=== PATIENT | female | born 1980 | race Caucasian/White ===

== ENCOUNTER → 2018-09-25 | Outpatient (CLI) | payer OTHER ==
[~2018-09-25] MED LIST: EFFEXOR XR150 MG PO; NAPROSYN500 MG PO; PENICILLIN VK500 MG PO; Peridex 473 ML473 ML PO; TRAZODONE50 MG PO
== END | disposition home or self-care (01) ==
LOC: US 16:54
DX: I10 Essential (primary) hypertension (principal); N17.9 Acute kidney failure, unspecified

== ENCOUNTER 2021-06-21 14:14 | Emergency (ER) | payer OTHER | END 2021-06-21 17:00 | disposition home or self-care (01) | LOC: ED 14:14 | DX: S06.0X1A Concussion with loss of consciousness of 30 minutes or less, initial encounter (principal); M25.551 Pain in right hip; M25.511 Pain in right shoulder; Z91.041 Radiographic dye allergy status; Z79.899 Other long term (current) drug therapy; Z98.51 Tubal ligation status; Z98.890 Other specified postprocedural states; W01.198A Fall on same level from slipping, tripping and stumbling with subsequent striking against other object, initial encounter; Y93.89 Activity, other specified; Y92.89 Other specified places as the place of occurrence of the external cause; Y99.8 Other external cause status ==

== ENCOUNTER 2023-03-06 18:48 | Emergency (ER) | payer OTHER ==
[~2023-03-06] VITALS: Ht 147.3 cm; Wt 49.0 kg
[2023-03-06] MEDS ORDERED: PERCOCET 5-3251 EACH PO (20:07)
== END 2023-03-06 20:18 | disposition home or self-care (01) ==
LOC: ED 18:48
DX: M79.601 Pain in right arm (principal); D36.10 Benign neoplasm of peripheral nerves and autonomic nervous system, unspecified; Z90.89 Acquired absence of other organs; Z98.890 Other specified postprocedural states; Z98.51 Tubal ligation status

== ENCOUNTER 2023-03-26 13:14 | Emergency (ER) | payer OTHER ==
[~2023-03-26] VITALS: Ht 147.3 cm; Wt 49.9 kg
[~2023-03-26 13:14] MED LIST changes: +PERCOCET 5-3251 EACH PO
[2023-03-26] MEDS ORDERED: NEURONTIN300 MG PO (14:50)
[2023-03-26] MEDS ORDERED: HYDROXYZINE PAM50 MG PO (14:51)
[2023-03-26] MEDS ORDERED: SERTRALINE HYD100 MG PO (14:51)
[2023-03-26] MEDS ORDERED: LEVETIRACETAM1000 M1 PO (14:52)
[2023-03-26 15:18] LABS: BASO % 0.4 % (0.0-1.0); EOS # 0.1 10*3/uL (0.0-0.4); EOS % 1.4 % (1.0-4.0); HEMATOCRIT 42.6 % (37.0-47.0); LYMPH # 1.6 10*3/uL (1.3-4.4); MEAN CELL VOLUME 88.8 fl (81.0-99.0); MEAN CORPUSCULAR HGB CONC 33.8 g/dl (33.0-37.0); MEAN PLATELET VOLUME 9.7 fl (9.6-12.3); MONO # 0.9 10*3/uL (0.1-1.0); MONO % 8.8 % (3.0-9.0); NEUT # 7.2 10*3/uL (2.3-7.9); NEUT % 72.5 % (47.0-73.0); PLATELET COUNT AUTOMATED 333 10*3/uL (130-400); RED CELL DISTRI WIDTH 12.1 % (0-14.5)
[2023-03-26 15:47] LABS: ALKALINE PHOSPHATASE 53 U/L (46-116); BUN 10 mg/dl (9-23); CHLORIDE 107 mmol/L (98-107); TOTAL PROTEIN 7.2 gm/dL (6.0-8.0)
[2023-03-26 15:49] LABS: SGPT/ALT < 7 U/L (10-49)
[2023-03-26] MEDS ORDERED: IBU800 MG PO (16:06)
[2023-03-26] MEDS ORDERED: REGLAN10 M1 PO (16:06)
== END 2023-03-26 17:54 | disposition home or self-care (01) ==
LOC: ED 13:14
PROVIDERS: Emergency Medicine
DX: G43.109 Migraine with aura, not intractable, without status migrainosus (principal); R53.1 Weakness; F32.A Depression, unspecified; F41.9 Anxiety disorder, unspecified; Z90.89 Acquired absence of other organs; Z98.51 Tubal ligation status; Z98.890 Other specified postprocedural states

== ENCOUNTER 2024-03-31 11:06 | Emergency (ER) | payer OTHER ==
[~2024-03-31] VITALS: Ht 149.8 cm; Wt 49.0 kg
[~2024-03-31 11:06] MED LIST changes: +HYDROXYZINE PAM50 MG PO; +IBU800 MG PO; +LEVETIRACETAM1000 M1 PO; +NEURONTIN300 MG PO; +REGLAN10 M1 PO; +SERTRALINE HYD100 MG PO
[2024-03-31] MEDS ORDERED: Ketorolac Tromethamine 30 MG/ML VIAL IV ONE (12:15)
[2024-03-31] MEDS ORDERED: SODIUM CHLORIDE 0.9% 1,000 ML IV ONE (12:15)
[2024-03-31] MEDS ORDERED: diphenhydrAMINE hydrochloride 50 MG/ML VIAL IV ONE (12:15)
[2024-03-31] MEDS ORDERED: Ondansetron Hydrochloride 4 MG/2 ML VIAL IV ONE (12:15)
== END 2024-03-31 14:49 | disposition home or self-care (01) ==
LOC: ED 11:06
DX: G43.909 Migraine, unspecified, not intractable, without status migrainosus (principal); Z88.8 Allergy status to other drugs, medicaments and biological substances; Z79.899 Other long term (current) drug therapy; Z98.890 Other specified postprocedural states

== ENCOUNTER → 2024-12-15 | Outpatient (CLI) | payer OTHER ==
[2024-12-15 09:11] LABS: FREE T4 1.21 ng/dl (0.89-1.76)
== END | disposition home or self-care (01) ==
LOC: LAB 07:48
PROVIDERS: Student in an Organized Health Care Education/Training Program; ATTEND Student in an Organized Health Care Education/Training Program
DX: D35.02 Benign neoplasm of left adrenal gland (principal); E03.9 Hypothyroidism, unspecified; E06.3 Autoimmune thyroiditis

== ENCOUNTER → 2024-12-18 | Outpatient (CLI) | payer OTHER | END | disposition home or self-care (01) | LOC: US 10:00 | PROVIDERS: ATTEND Student in an Organized Health Care Education/Training Program | DX: E04.2 Nontoxic multinodular goiter (principal); E03.9 Hypothyroidism, unspecified ==

== ENCOUNTER → 2025-01-06 | Outpatient (CLI) | payer OTHER | END | disposition home or self-care (01) | LOC: LAB 00:34 | PROVIDERS: ATTEND Family Medicine | DX: R53.83 Other fatigue (principal) ==

== ENCOUNTER → 2025-02-10 | Outpatient (CLI) | payer OTHER | END | disposition home or self-care (01) | LOC: RAD 00:37 | PROVIDERS: ATTEND Pain Medicine Interventional Pain Medicine | DX: M47.817 Spondylosis without myelopathy or radiculopathy, lumbosacral region (principal) ==

== ENCOUNTER → 2025-03-01 | Outpatient (CLI) | payer OTHER ==
[2025-03-01 13:51] LABS: BUN 10 mg/dl (9-23); CHLORIDE 106 mmol/L (98-107)
== END | disposition home or self-care (01) ==
LOC: LAB 12:27
PROVIDERS: ATTEND Pain Medicine Interventional Pain Medicine
DX: Z79.1 Long term (current) use of non-steroidal anti-inflammatories (NSAID) (principal)

== ENCOUNTER → 2025-03-11 | Outpatient (CLI) | payer OTHER ==
[2025-03-11 07:54] LABS: BASO % 0.5 % (0.0-1.0); EOS # 0.2 10*3/uL (0.0-0.4); EOS % 2.3 % (1.0-4.0); HEMATOCRIT 43.7 % (37.0-47.0); MEAN CELL VOLUME 88.8 fl (81.0-99.0); MEAN CORPUSCULAR HGB 29.3 pg (27.0-31.0); MEAN PLATELET VOLUME 9.6 fl (9.6-12.3); MONO # 0.9 10*3/uL (0.1-1.0); MONO % 12.8 % (3.0-9.0); NEUT # 3.9 10*3/uL (2.3-7.9); NEUT % 53.6 % (47.0-73.0); PLATELET COUNT AUTOMATED 351 10*3/uL (130-400); RED BLOOD COUNT 4.92 10*6/uL (4.10-5.10); RED CELL DISTRI WIDTH 12.1 % (0-14.5); WHITE BLOOD COUNT 7.3 10*3/uL (4.8-10.8)
[2025-03-11 08:26] LABS: ALKALINE PHOSPHATASE 69 U/L (46-116); LIPASE 26 U/L (12-53); TOTAL PROTEIN 7.6 gm/dL (6.0-8.0)
[2025-03-11 08:30] LABS: SGPT/ALT < 7 U/L (5-49)
== END | disposition home or self-care (01) ==
LOC: LAB 01:06
PROVIDERS: ATTEND Family Medicine
DX: R10.13 Epigastric pain (principal)

== ENCOUNTER → 2025-06-09 | Outpatient (CLI) | payer OTHER ==
[2025-06-09 16:03] LABS: FREE T4 1.25 ng/dl (0.89-1.76)
== END | disposition home or self-care (01) ==
LOC: LAB 15:10
PROVIDERS: Student in an Organized Health Care Education/Training Program; ATTEND Internal Medicine Endocrinology, Diabetes & Metabolism
DX: E03.9 Hypothyroidism, unspecified (principal); E06.3 Autoimmune thyroiditis

== ENCOUNTER → 2025-09-27 | Outpatient (CLI) | payer OTHER ==
[2025-09-27 10:28] LABS: BUN 12 mg/dl (9-23); FREE T4 1.40 ng/dl (0.89-1.76); LDL CHOLESTEROL 177 mg/dL (9-159)
[2025-09-27 10:43] LABS: SGPT/ALT < 7 U/L (5-49)
== END | disposition home or self-care (01) ==
LOC: LAB 09:31
PROVIDERS: ATTEND Internal Medicine Endocrinology, Diabetes & Metabolism
DX: E27.40 Unspecified adrenocortical insufficiency (principal); E06.3 Autoimmune thyroiditis